=== PATIENT | female | born 1985 | race Hispanic/Latino ===

== ENCOUNTER 2018-03-19 15:40 | Emergency (ER) | payer BC ==
[2018-03-19 15:49] VITALS: TEMP 98.2
[2018-03-19] MEDS ORDERED: DiphenhydrAMINE 50 mg/ml Inj IVP STA (16:09)
--- NOTE | 2018-03-19 16:11 | ED PDOC ---
Arrival/HPI - General Historian: Patient - History of Present Illness Time/Duration: 4-6 hours Symptom Onset: Sudden Symptom Course: Improving Severity Level: 10 Context: Exertion <Manuel Pham - Last Filed: 03/19/18 18:52> <Cheyenne Rae - Last Filed: 03/19/18 22:26> - General Chief Complaint: Headache Time Seen by Provider: 03/19/18 15:43 - History of Present Illness Narrative History of Present Illness (Text): 03/19/18 16:07 32 year old female, whose past medical history includes chronic headaches, who presents to the emergency department complaining of a headache since this morning. Patient went to an urgent care, which directed her to the emergency department for a head CT to rule out bleeding. Patient states she went to the gym this morning with running and heavy lifting, showered, ate a yogurt, then went shopping, where the patient experienced a sudden onset of headache frontal/ parietal lt. sided headache associated with blurry vision for couple seconds, aggravated by bright light, associated with nausea/vomiting, throbbing sensation. Patient states severity was a 9/10, but improved with tylenol. Patient states the blurry vision has resolved and her headache is a 3/10 now. Patient denies any fever, chills, chest pain, shortness of breath, nausea, vomiting, diarrhea, back pain, neck pain, trauma/injury, or any other complaints. (Manuel Pham) Past Medical History - Provider Review Nursing Documentation Reviewed: Yes - Infectious Disease Hx of Infectious Diseases: None - Psychiatric Hx Substance Use: No <Manuel Pham - Last Filed: 03/19/18 18:52> Family/Social History - Physician Review Nursing Documentation Reviewed: Yes Family/Social History: Unknown Family HX Smoking Status: Never Smoked Hx Alcohol Use: No Hx Substance Use: No <Manuel Pham - Last Filed: 03/19/18 18:52> Allergies/Home Meds <Manuel Pham - Last Filed: 03/19/18 18:52> <Cheyenne Rae - Last Filed: 03/19/18 22:26> Allergies/Adverse Reactions: Allergies No Known Allergies Allergy (Verified 03/19/18 15:50) Review of Systems - Physician Review All systems were reviewed & negative as marked: Yes - Review of Systems Constitutional: Normal Eyes: Vision Changes (blurred vision), Photophobia. absent: Eye Pain ENT: Normal Respiratory: Normal. absent: SOB, Cough Cardiovascular: Normal. absent: Chest Pain Gastrointestinal: Normal, Nausea, Vomiting. absent: Abdominal Pain, Diarrhea Genitourinary Female: Normal. absent: Dysuria, Frequency, Hematuria, Urine Output Changes Musculoskeletal: Normal. absent: Back Pain, Neck Pain Skin: Normal. absent: Rash Neurological: Headache Endocrine: Normal Hemo/Lymphatic: Normal Psychiatric: Normal <Manuel Pham Q - Last Filed: 03/19/18 18:52> Physical Exam Vital Signs Reviewed: Yes Temperature: Afebrile Blood Pressure: Normal Pulse: Regular Respiratory Rate: Normal Appearance: Positive for: Well-Appearing, Non-Toxic, Comfortable Pain Distress: Mild Mental Status: Positive for: Alert and Oriented X 3 - Systems Exam Head: Present: Atraumatic, Normocephalic, Other (no temporal artery tenderness, no jaw claudication). No: Tenderness, Contusion, Swelling, Ecchymosis, Abrasion , Laceration Pupils: Present: PERRL, Other (Bilateral vision w/o correction: 20/20, lt. vision w/o correction 20/20, rt. vision w/o correction 20/20, no gaze or nystagmus) Extroacular Muscles: Present: EOMI Conjunctiva: Present: Normal Ears: Present: NORMAL TM, Normal Canal. No: Erythema Mouth: Present: Moist Mucous Membranes Pharnyx: Present: Normal. No: ERYTHEMA, EXUDATE, TONSILS ENLARGED, Uvular Deviation Nose (External): Present: Atraumatic. No: Abrasion, Contusion, Laceration Nose (Internal): Present: Normal Inspection, No Active Bleeding. No: Rhinorrhea , Septal Hematoma, Epistaxis Neck: Present: Normal Range of Motion, Trachea Midline. No: MIDLINE TENDERNESS , Paraspinal Tenderness, Lymphadenopathy Respiratory/Chest: Present: Clear to Auscultation, Good Air Exchange. No: Respiratory Distress, Accessory Muscle Use Cardiovascular: Present: Regular Rate and Rhythm, Normal S1, S2. No: Murmurs Abdomen: No: Tenderness, Distention, Peritoneal Signs, Rebound, Guarding Back: Present: Normal Inspection Upper Extremity: Present: Normal Inspection. No: Cyanosis, Edema, Swelling Lower Extremity: Present: Normal Inspection, Normal ROM. No: Edema, Tenderness , Swelling Neurological: Present: GCS=15, CN II-XII Intact, Speech Normal, Motor Func Grossly Intact, Gait Normal, Memory Normal, Other (normal finger to nose, normal heel to brown, no drift, no focal neurological deficits. ) Skin: Present: Warm, Dry, Normal Color. No: Rashes Psychiatric: Present: Alert, Oriented x 3, Normal Insight, Normal Concentration <Manuel Pham - Last Filed: 03/19/18 18:52> Vital Signs Temp Pulse Resp BP Pulse Ox 03/19/18 19:17 75 17 119/80 100 03/19/18 18:13 71 18 115/68 98 03/19/18 16:30 79 18 118/71 98 03/19/18 15:44 98.2 F 85 18 120/77 96 Medical Decision Making - Lab Interpretations I have reviewed the lab results: Yes Interpretation: All labs normal - RAD Interpretation Concession Manager: Radiologist <Manuel Pham - Last Filed: 03/19/18 18:52> <Cheyenne Rae - Last Filed: 03/19/18 22:26> ED Course and Treatment: 03/19/18 16:14 Impression: 32 year old female presents to the emergency department complaining of headache and blurred vision since this morning. Plan: -- Labs/ua -- CT Head --IVF/reglan/benadryl --Observe and reassess 03/19/18 18:54 -Urine hcg is negative -CT Head show Normal CT of the Head. No intracranial mass, hemorrhage or evidence of acute infarct. -Labs show no acute findings except CK 882 (IVF infusing) and trending down to 787. -UA show no UTI -Pt. feels much better with relief now. -Case discussed and labs reviewed with DR. Rae including the examination, agreed this patient can be discharged home. Pt. has no visual disturbance at this time -Discharge home with tylenol, stay hydrated, follow up with your own pmd and neurologist within 2 days, return to the ER for any new or worsening signs or symptoms. (Manuel Pham) - Lab Interpretations Lab Results: 03/19/18 16:26 03/19/18 16:26 Lab Results 03/19/18 18:30: Total Creatine Kinase 787 H, CK-MB (CK-2) 1.9, CK-MB (CK-2) % Cancelled 03/19/18 16:26: Urine Color Dark yellow, Urine Appearance Clear, Urine pH 6.5, Ur Specific [place] 1.020, Urine Protein Trace H, Urine Glucose (UA) Negative, Urine Ketones Trace H, Urine Blood Negative, Urine Nitrate Negative, Urine Bilirubin Negative, Urine Urobilinogen 0.2, Ur Leukocyte Esterase Negative, Urine RBC Negative, Urine WBC Negative, Ur Epithelial Cells 4 - 5, Urine HCG, Qual Negative 03/19/18 16:26: Sodium 143, Potassium 4.2, Chloride 103, Carbon Dioxide 25, Anion Gap 19, BUN 13, Creatinine 0.6 L, Est GFR ( Amer) > 60, Est GFR ( Non-Af Amer) > 60, Random Glucose 98, Calcium 9.6, Magnesium 2.0, Total Bilirubin 0.7, AST 57 H, ALT 38, Alkaline Phosphatase 58, Total Creatine Kinase 882 H, CK-MB (CK-2) 2.5, CK-MB (CK-2) % Cancelled, Total Protein 8.7 H, Albumin 4.8, Globulin 3.9, Albumin/Globulin Ratio 1.2 03/19/18 16:26: WBC 8.5, RBC 4.32, Hgb 12.6, Hct 37.5, MCV 86.8, MCH 29.2, MCHC 33.6, RDW 13.4, Plt Count 365, MPV 9.5, Gran % 77.6 H, Lymph % (Auto) 17.1 L, [place] % (Auto) 4.5, Eos % (Auto) 0.6 L, Baso % (Auto) 0.2, Gran # 6.58 H, Lymph # (Auto) 1.5, [place] # (Auto) 0.4, Eos # (Auto) 0.1, Baso # (Auto) 0.02 - RAD Interpretation Radiology Orders: 03/19/18 16:07 HEAD W/O CONTRAST [CT] Stat PROCEDURE: CT HEAD WITHOUT CONTRAST. HISTORY: headache, nausea and vomiting COMPARISON: None available. TECHNIQUE: Axial computed tomography images were obtained through the head/brain without intravenous contrast. Radiation dose: Total exam DLP = 973.30 mGy-cm. This CT exam was performed using one or more of the following dose reduction techniques: Automated exposure control, adjustment of the mA and/or kV according to patient size, and/or use of iterative reconstruction technique. FINDINGS: HEMORRHAGE: No intracranial hemorrhage. BRAIN: No mass effect or edema. No atrophy or chronic microvascular ischemic changes. VENTRICLES: Unremarkable. No hydrocephalus. CALVARIUM: Unremarkable. PARANASAL SINUSES: Unremarkable as visualized. No significant inflammatory changes. MASTOID AIR CELLS: Unremarkable as visualized. No inflammatory changes. OTHER FINDINGS: None. IMPRESSION: Normal CT of the Head. No intracranial mass, hemorrhage or evidence of acute infarct. (Manuel Pham) - Medication Orders Current Medication Orders: Discontinued Medications Diphenhydramine HCl (Benadryl) 25 mg IVP STAT STA Stop: 03/19/18 16:10 Last Admin: 03/19/18 16:27 Dose: 25 mg IVP Administration Document 03/19/18 16:27 SF (Rec: 03/19/18 16:27 [email or web address]) Charges for Administration # of IVP Administrations 1 Sodium Chloride (Sodium Chloride 0.9%) 1,000 mls @ 500 mls/hr IV .Q2H LOLY Last Admin: 03/19/18 18:00 Dose: 500 mls/hr eMAR Start Stop Document 03/19/18 18:00 SF (Rec: 03/19/18 18:14 [email or web address]) Intravenous Solution Start Date 03/19/18 Start Time 18:00 End Date 03/19/18 Metoclopramide HCl (Reglan) 10 mg IVP STAT STA Stop: 03/19/18 16:08 Last Admin: 03/19/18 16:27 Dose: 10 mg IVP Administration Document 03/19/18 16:27 SF (Rec: 03/19/18 16:27 [email or web address]) Charges for Administration # of IVP Administrations 1 - PA / HARVESTING MANAGER / Resident Statement MD/DO has reviewed & agrees with the documentation as recorded. MD/DO has examined the patient and agrees with the treatment plan. - Scribe Statement The provider has reviewed the documentation as recorded by the Scribe <Manuel Pham - Last Filed: 03/19/18 18:52> - PA / HARVESTING MANAGER / Resident Statement MD/DO has reviewed & agrees with the documentation as recorded. <Cheyenne Rae - Last Filed: 03/19/18 22:26> - Scribe Statement Tana Paul All medical record entries made by the Scribe were at my direction and personally dictated by me. I have reviewed the chart and agree that the record accurately reflects my personal performance of the history, physical exam, medical decision making, and the department course for this patient. I have also personally directed, reviewed, and agree with the discharge instructions and disposition. (Manuel Pham) Disposition/Present on Arrival - Present on Arrival Any Indicators Present on Arrival: No History of DVT/PE: No History of Uncontrolled Diabetes: No Urinary Catheter: No History of Decub. Ulcer: No History Surgical Site Infection Following: None - Disposition Have Diagnosis and Disposition been Completed?: Yes Disposition Time: 18:57 Patient Plan: Discharge <Manuel Pham - Last Filed: 03/19/18 18:52> <Cheyenne Rae - Last Filed: 03/19/18 22:26> - Disposition Diagnosis: Migraine headache with aura Disposition: HOME/ ROUTINE Condition: IMPROVED Additional Instructions: -Discharge home with tylenol, stay hydrated, follow up with your own pmd and neurologist within 2 days, return to the ER for any new or worsening signs or symptoms. Prescriptions: Acetaminophen [Tylenol 325mg tab] 2 tab PO QID PRN #30 tab PRN Reason: Other Referrals: Jhony Covarrubias MD [Staff Provider] - Follow up with primary Forms: WORK NOTE
[2018-03-19 16:32] LABS: BASO # 0.02 K/mm3 (0.0-2.0); BASO % 0.2 % (0.0-3.0); EOS # 0.1 (0.0-0.7); EOS % 0.6 % (1.5-5.0); GRAN # 6.58 (1.4-6.5); GRAN % 77.6 % (50.0-68.0); HEMOGLOBIN 12.6 g/dL (12.0-16.0); LYMPH # 1.5 (1.2-3.4); LYMPH % 17.1 % (22.0-35.0); MEAN CELL VOLUME 86.8 fl (80.0-105.0); MEAN CORPUSCULAR HEMOGLOBIN 29.2 pg (25.0-35.0); MEAN CORPUSCULAR HGB CONC 33.6 g/dl (31.0-37.0); MEAN PLATELET VOLUME 9.5 fl (7.0-11.0); MONO # 0.4 (0.1-0.6); MONO % 4.5 % (1.0-6.0); RBC 4.32 10^6/uL (3.5-6.1); RED CELL DISTRIBUTION WIDTH 13.4 % (11.5-14.5); WHITE BLOOD COUNT 8.5 10^3/ul (4.5-11.0)
[2018-03-19 16:33] LABS: PH,URINE 6.5 (4.7-8.0); URINE APPEARANCE CLEAR (CLEAR); URINE BILIRUBIN NEGATIVE (NEGATIVE); URINE BLOOD NEGATIVE (NEGATIVE); URINE COLOR DARK YELLOW (YELLOW); URINE GLUCOSE (UA) NEGATIVE (NEGATIVE); URINE LEUKOCYTE ESTERASE NEGATIVE Leu/uL (NEGATIVE); URINE PROTEIN TRACE mg/dL (<30 mg/dL); URINE UROBILINOGEN 0.2 E.U./dL (<1 E.U./dL)
[2018-03-19 16:35] LABS: HCG,QUALITATIVE URINE NEGATIVE (NEGATIVE)
[2018-03-19 16:39] LABS: URINE RBC NEGATIVE /hpf (0-2); URINE WBC NEGATIVE /hpf (0-6)
[2018-03-19 16:42] LABS: ALB/GLOB RATIO 1.2 (1.1-1.8); ALBUMIN 4.8 g/dL (3.0-4.8); CALCIUM 9.6 mg/dL (8.4-10.5); GFR AFRICAN-AMERICAN > 60; GFR NON-AFRICAN AMERICAN > 60
[2018-03-19 16:56] LABS: ALT/SGPT 38 U/L (7-56); AST/SGOT 57 U/L (14-36); BLOOD UREA NITROGEN 13 mg/dL (7-21)
[2018-03-19 17:09] LABS: CK-MB 2.5 ng/mL (0.0-3.6)
[2018-03-19] MEDS ORDERED: Sodium Chloride 0.9% 1,000 ML IV SCH (17:30)
--- NOTE | 2018-03-19 17:31 | CT ---
PROCEDURE: CT HEAD WITHOUT CONTRAST. HISTORY: headache, nausea and vomiting COMPARISON: None available. TECHNIQUE: Axial computed tomography images were obtained through the head/brain without intravenous contrast. Radiation dose: Total exam DLP = 973.30 mGy-cm. This CT exam was performed using one or more of the following dose reduction techniques: Automated exposure control, adjustment of the mA and/or kV according to patient size, and/or use of iterative reconstruction technique. FINDINGS: HEMORRHAGE: No intracranial hemorrhage. BRAIN: No mass effect or edema. No atrophy or chronic microvascular ischemic changes. VENTRICLES: Unremarkable. No hydrocephalus. CALVARIUM: Unremarkable. PARANASAL SINUSES: Unremarkable as visualized. No significant inflammatory changes. MASTOID AIR CELLS: Unremarkable as visualized. No inflammatory changes. OTHER FINDINGS: None. IMPRESSION: Normal CT of the Head. No intracranial mass, hemorrhage or evidence of acute infarct.
[2018-03-19 19:05] LABS: CK-MB 1.9 ng/mL (0.0-3.6)
[2018-03-19 19:18] VITALS: BP 119/80; PULSE 75; RESP 17; O2SAT 100
== END 2018-03-19 19:17 | disposition home or self-care (01) ==
LOC: ED 15:40
DX: G43.109 Migraine with aura, not intractable, without status migrainosus (principal)
CPT/HCPCS: 70450; 80053; 81001; 82550; 82553; 83735; 84703; 85025; 96374; 96375; 99285; J1200; J2765; J7040